=== PATIENT | female | born 1940 | race Caucasian/White ===

== ENCOUNTER 2016-10-09 08:10 | Day surgery (SDC) | payer MEDICARE, OTHER ==
--- NOTE | 2016-10-09 06:03 | PCM.HP ---
H&P History of Present Illness - General Date of Service: 10/09/16 Admit Problem/Dx: duodenitis, esophageal ulcerations around the GE junction, gastritis, small gastric ulcers on 06/12/16 diagnostic EGD, need for surveillance EGD Source of Information: Patient - History of Present Illness Initial Comments - Free Text/Narative: The patient presents today for surveillance EGD. She reports she was taking Prilosec twice daily up until a few weeks ago. She reports she does forget to take this at times lately. She reports she has had significant improvement in stomach issues. She reports her stomach feels more settled and she is less gassy and less frequent burping. She reports she has rare reflux/heartburn now when she overeats. She denies she has trouble swallowing, nausea, vomiting, constipation, diarrhea, melena, blood in her stool or abdominal pain. She did have her right great toe and second toe nails removed on 09/13. She reports her toes were purple, draining and warm, but this has improved. she reports they did have an odor, but no longer have an odor. She has taken tylenol for pain at times. she has been applying Silvadene to the toes. She has some ankle swelling in the mcdonald with heat. - Related Data Allergies/Adverse Reactions: Allergies Allergy/AdvReac Type Severity Reaction Status Date / Time iohexol Allergy Itching Verified 06/11/16 16:05 shellfish derived Allergy Itching Verified 05/06/16 12:15 Home Medications: Home Meds Anastrozole 1 tab PO DAILY 03/05/16 [History] Cholecalciferol (Vitamin D3) [Vitamin D] 1 tab PO DAILY 03/05/16 [History] Fish Oil/[place]-3 Fatty Acids [Fish Oil 1,000 MG] 1 cap PO DAILY 03/05/16 [ History] Flaxseed 1 tab PO DAILY 03/05/16 [History] Glucosam/Chond/Hyalu/Cf Borate [Move Free Joint Health Tablet] 1 tab PO DAILY [History] Multivitamin [Multivitamins] 1 tab PO DAILY 03/05/16 [History] Vitamin B Complex [B Complex] 1 tab PO DAILY 03/05/16 [History] Vitamin E 1 cap PO DAILY 03/05/16 [History] Omeprazole 20 mg PO BID #60 tablet. 06/12/16 [Rx] Betamethasone/Clotrimazole [Lotrisone] 1 applic TOP ASDIRECTED PRN 10/08/16 [ History] Calcium Carbonate [Calcium] 600 mg PO DAILY 10/08/16 [History] Naproxen Sodium [Aleve] 220 - 440 mg PO BID PRN 10/08/16 [History] Past Medical History HEENT History: Reports: Cataract Cardiovascular History: Reports: High Cholesterol Respiratory History: Reports: None Gastrointestinal History: Reports: Colon Polyp, Gastritis, GERD, Other (See Below) Other Gastrointestinal History: duodenitis, esophageal ulcerations, gastric ulcers, diverticulosis, post op nausea and vomiting Genitourinary History: Reports: Renal Calculus KELP OR SEAGR[employer] GATHERER History: Reports: Musculoskeletal History: Reports: Arthritis, Back Pain, Chronic Neurological History: Reports: None, Vertigo Psychiatric History: Reports: None, Other (See Below) Other Psychiatric History: clautrophobia Endocrine/Metabolic History: Reports: Obesity/BMI 30+, Other (See Below) Other Endocrine/Metabolic History: goiter Hematologic History: Reports: None Immunologic History: Reports: None Oncologic (Cancer) History: Reports: Breast Dermatologic History: Reports: None - Infectious Disease History Infectious Disease History: Reports: None - Past Surgical History Head Surgeries/Procedures: Reports: None HEENT Surgical History: Reports: Cataract Surgery, Tonsillectomy Cardiovascular Surgical History: Reports: Other (See Below) Other Cardiovascular Surgeries/Procedures: cardiac catheterization GI Surgical History: Reports: Cholecystectomy, Colonoscopy, EGD Female Surgical History: Reports: Hysterectomy, Lithotripsy/ESWL, Mastectomy Musculoskeletal Surgical History: Reports: Hip Replacement, Knee Replacement, Other (See Below) Other Musculoskeletal Surgeries/Procedures:: herniated disk surgery, bilateral hip replacements, bilateral knee replacements Dermatological Surgical History: Reports: None Social & Family History - Tobacco Use Smoking Status *Q: Never Smoker Second Hand Smoke Exposure: No - Alcohol Use Days Per Week of Alcohol Use: 0 - Recreational Drug Use Recreational Drug Use: No H&P Review of Systems - Review of Systems: Review Of Systems: See Below Free Text/Narrative: Denies any exertional chest pain or shortness of breath. No history of any easy bleeding or bruising. No personal or familial history of clotting or bleeding disorders. No history of anesthetic complications, with the exception of PONV. No history of familial anesthetic complications. Presently denies chest pain, palpitations. Rare lower extremity edema. NO: dyspnea, orthopnea, claudication, wheezing, obstructive sleep apnea, chronic cough, upper respiratory symptoms in the last two weeks. No history of blood thinner use. No history of anemia. ~~~The patient bilateral hip and knee~joint replacement. ~No history of seizure or stroke. ~ No history of fever, chills, or nightsweats. She has back and joint pain. ~ Prior cardiology. NO: pulmonology evaluation. Was told she had a heart attack in the past prior to knee surgery. ~She had to see Dr. Hernandez and had a cardiac catheter that was negative. ~ EK nonspecific T wave abnormality from former [facility] records. All other systems reviewed and were negative except as per history of present illness General: Reports: No Symptoms. Denies: Fever, Chills, Night Sweats HEENT: Denies: No Symptoms Pulmonary: Denies: No Symptoms, Shortness of Breath Cardiovascular: Denies: No Symptoms, Chest Pain, Palpitations, Dyspnea on Exertion Gastrointestinal: Reports: No Symptoms. Denies: Abdominal Pain Genitourinary: Reports: No Symptoms Musculoskeletal: Reports: No Symptoms Skin: Reports: Other (see hpi ) Psychiatric: Reports: No Symptoms Neurological: Reports: No Symptoms Hematologic/Lymphatic: Reports: No Symptoms Immunologic: Reports: No Symptoms Exam - Exam Exam: See Below - Vital Signs Weight: 90.718 kg - Exam General: Alert, Oriented HEENT: Conjunctiva Clear. No: Scleral Icterus Neck: Supple, Trachea Midline Lungs: Clear to Auscultation, Normal Respiratory Effort Cardiovascular: Regular Rate, Regular Rhythm, Normal S1, Normal S2. No: Systolic Murmur, Diastolic Murmur Abdomen: Soft. No: Distention, Tenderness Back Exam: Normal Inspection, Full Range of Motion Extremities: Normal Inspection, Normal Pulses, Edema (mild ankle ). No: Clubbing, Cyanosis, Calf Tenderness Skin: Warm, Dry (right great and second toe nail removal sites healing well, slight warmth to right great toe; fibrinous exudate noted-no odor, granulation tissue noted, skin to distal right great and second toes are deep pink in color , no tenderness, skin to medial aspect of nail bed of second toe is slighty macerated) Neurological: Cranial Nerves Intact, Normal Speech Neuro Extensive - Mental Status: Alert, Oriented x3, Normal Mood/Affect, Normal Cognition, Memory Intact Psychiatric: Alert, Normal Affect, Normal Mood *Q Meaningful Use (ADM) - VTE *Q VTE Criteria *Q: - Stroke *Q Stroke Criteria *Q: - AMI *Q AMI Criteria *Q: - Problem List (1) Duodenitis SNOMED Code(s): 14521170 ICD Code: K29.80 - DUODENITIS WITHOUT BLEEDING Status: Acute Current Visit: Yes (2) Gastric ulcer SNOMED Code(s): 376490296 ICD Code: K25.9 - GASTRIC ULCER, UNSP ACUTE OR CHRONIC, W/O HEMOR OR PERF Status: Acute Current Visit: Yes Qualifiers: Gastric ulcer complication status: without hemorrhage or perforation (3) Esophageal ulceration SNOMED Code(s): 76717233 ICD Code: K22.10 - ULCER OF ESOPHAGUS WITHOUT BLEEDING Status: Acute Current Visit: Yes Qualifiers: Esophageal ulcer bleeding: without bleeding Qualified Code(s): K22.10 - Ulcer of esophagus without bleeding (4) Gastritis SNOMED Code(s): 8069737 ICD Code: K29.70 - GASTRITIS, UNSPECIFIED, WITHOUT BLEEDING Status: Acute Current Visit: Yes Qualifiers: Gastritis type: unspecified gastritis Chronicity: unspecified Gastritis bleeding: without bleeding Qualified Code(s): K29.70 - Gastritis, unspecified , without bleeding Problem List Initiated/Reviewed/Updated: Yes Orders Last 24hrs: Active Orders 24 hr Category Date Time Status Peripheral IV Care [RC] . DIRECTED Care 10/09/16 00:01 Active Verify Patient Consent Obtain [RC] ASDIRECTED Care 10/09/16 00:01 Active Lactated Ringers [Ringers, Lactated] 1,000 ml Med 10/09/16 00:01 Active IV ASDIRECTED Lidocaine 1%/Sod Bicarbonate [Buffered Lidocaine 1% in Med 10/09/16 00:01 Active NS 8.4%] 0.25 ml .XX ONETIME PRN Sodium Chloride 0.9% [Saline Flush] Med 10/09/16 00:01 Active 10 ml FLUSH ASDIRECTED PRN Medication Administration Instruction [OM.PC] Routine Oth 10/09/16 00:01 Ordered Peripheral IV Insertion Adult [OM.PC] Routine Oth 10/09/16 00:01 Ordered Medication Orders Lactated Ringer's (Ringers, Lactated) 1,000 mls @ 125 mls/hr IV ASDIRECTED CRISTOPHER Stop: 10/09/16 23:00 Lidocaine/Sodium Bicarbonate (Buffered Lidocaine 1% In Ns 8.4%) 0.25 ml .XX ONETIME PRN PRN Reason: Prior to IV Start Stop: 10/09/16 18:00 Sodium Chloride (Saline Flush) 10 ml FLUSH ASDIRECTED PRN PRN Reason: Keep Vein Open Stop: 10/09/16 18:00 Assessment/Plan Comment:: 75yr female status history of duodenitis, esophageal ulcerations around the GE junction, gastritis, small gastric ulcers, need for surveillance EGD We discussed performing a diagnostic EGD. We discussed the risks and benefits of EGD including pain, bleeding, need for additional procedures, damage to surrounding structures including esophageal or small bowel perforation risk of less than 1%, and risks of anesthesia. Informed consent was obtained. Verbal and written instructions were reviewed. Prior records/labs reviewed. She does have concerns about the appearance of her toe nails post removal. Follow up with Dr. Alas was advised. She should also place the silvadene only to nail bed to keep surrounding skin dry. This patient was evaluated with Dr. Annie Knott. Plan formulated above. Nadya Diaz NP-C scribing for Dr. Annie Knott General Surgery
[~2016-10-09 08:10] MED LIST: Lactated Ringers 1,000 ML IV SCH; Lidocaine 1%/Sod Bicarbonate in NS 8.4% 1 ML Syringe PRN; Propofol 200 MG/20 ML SDV ONE; Sodium Chloride 0.9% 10 ML Syringe FLUSH PRN
--- NOTE | 2016-10-09 09:17 | PCM.PREANE ---
Preanesthetic Assessment - Anesthesia/Transfusion/Family Hx Anesthesia History: Prior Anesthesia Reaction Type of Anesthesia Reaction: Excessive Nausea/Vomiting Family History of Anesthesia Reaction: No Transfusion History: Prior Transfusion Without Reaction Intubation History: Unknown - Review of Systems General: No Symptoms Pulmonary: No Symptoms Cardiovascular: No Symptoms (history of heart catheterization with unremarkable results noted prior to past knee replacement. (patient does not recall year)) Gastrointestinal: No symptoms (GERD) Neurological: No Symptoms Other: Reports: None (history of breast CA left (lumpectomy)) - Physical Assessment NPO Status Date: 10/08/16 NPO Status Time: 22:00 Pulse: 64 O2 Sat by Pulse Oximetry: 96 Respiratory Rate: 16 Blood Pressure: 139/73 Temperature: 37.3 C Vital Signs: Last Vital Signs Temp 37.3 C 10/09/16 08:20 Pulse 64 10/09/16 08:20 Resp 16 10/09/16 08:20 BP 139/73 10/09/16 08:20 Pulse Ox 96 10/09/16 08:20 Height: 1.7 m Weight: 94.347 kg ASA Class: 2 Mental Status: Alert & Oriented x3 Airway Class: Mallampati = 2 Dentition: Reports: Normal Dentition, Caries Thyro-Mental Finger Breadths: 3 Mouth Opening Finger Breadths: 3 ROM/Head Extension: Full Lungs: Clear to auscultation, Normal respiratory effort Cardiovascular: Regular Rate, Regular Rhythm, No Murmurs - Imaging/EKG Impressions: EKG: sinus rhythm rate=68 - Allergies Allergies/Adverse Reactions: Allergies Allergy/AdvReac Type Severity Reaction Status Date / Time iohexol Allergy Itching Verified 06/11/16 16:05 shellfish derived Allergy Itching Verified 05/06/16 12:15 - Anesthesia Plan Pre-Op Medication Ordered: None - Acknowledgements Anesthesia Type Planned: MAC Pt an Appropriate Candidate for the Planned Anesthesia: Yes Alternatives and Risks of Anesthesia Discussed w Pt/Guardian: Yes Pt/Guardian Understands and Agrees with Anesthesia Plan: Yes PreAnesthesia Questionnaire HEENT History: Reports: Cataract Cardiovascular History: Reports: High Cholesterol Respiratory History: Reports: None Gastrointestinal History: Reports: Colon Polyp, Gastritis, GERD, Other (See Below) Other Gastrointestinal History: duodenitis, esophageal ulcerations, gastric ulcers, diverticulosis, post op nausea and vomiting Genitourinary History: Reports: Renal Calculus [employer] History: Reports: Musculoskeletal History: Reports: Arthritis, Back Pain, Chronic Neurological History: Reports: None, Vertigo Psychiatric History: Reports: None, Other (See Below) Other Psychiatric History: clautrophobia Endocrine/Metabolic History: Reports: Obesity/BMI 30+, Other (See Below) Other Endocrine/Metabolic History: goiter Hematologic History: Reports: None Immunologic History: Reports: None Oncologic (Cancer) History: Reports: Breast Dermatologic History: Reports: None - Infectious Disease History Infectious Disease History: Reports: None - Past Surgical History Head Surgeries/Procedures: Reports: None HEENT Surgical History: Reports: Cataract Surgery, Tonsillectomy Cardiovascular Surgical History: Reports: Other (See Below) Other Cardiovascular Surgeries/Procedures: cardiac catheterization GI Surgical History: Reports: Cholecystectomy, Colonoscopy, EGD Female Surgical History: Reports: Hysterectomy, Lithotripsy/ESWL, Mastectomy Musculoskeletal Surgical History: Reports: Hip Replacement, Knee Replacement, Other (See Below) Other Musculoskeletal Surgeries/Procedures:: herniated disk surgery, bilateral hip replacements, bilateral knee replacements Dermatological Surgical History: Reports: None - SUBSTANCE USE Smoking Status *Q: Never Smoker Tobacco Use Within Last Twelve Months: No Second Hand Smoke Exposure: No Days Per Week of Alcohol Use: 0 Recreational Drug Use History: No - HOME MEDS Home Medications: Home Meds Anastrozole 1 tab PO DAILY 03/05/16 [History] Cholecalciferol (Vitamin D3) [Vitamin D] 1 tab PO DAILY 03/05/16 [History] Fish Oil/[place]-3 Fatty Acids [Fish Oil 1,000 MG] 1 cap PO DAILY 03/05/16 [ History] Flaxseed 1 tab PO DAILY 03/05/16 [History] Glucosam/Chond/Hyalu/Cf Borate [Move Free Joint Health Tablet] 1 tab PO DAILY [History] Multivitamin [Multivitamins] 1 tab PO DAILY 03/05/16 [History] Vitamin B Complex [B Complex] 1 tab PO DAILY 03/05/16 [History] Vitamin E 1 cap PO DAILY 03/05/16 [History] Omeprazole 20 mg PO BID #60 tablet. 06/12/16 [Rx] Betamethasone/Clotrimazole [Lotrisone] 1 applic TOP ASDIRECTED PRN 10/08/16 [ History] Calcium Carbonate [Calcium] 600 mg PO DAILY 10/08/16 [History] Naproxen Sodium [Aleve] 220 - 440 mg PO BID PRN 10/08/16 [History] - CURRENT (IN HOUSE) MEDS Current Meds: Current Medications Lactated Ringer's (Ringers, Lactated) 1,000 mls @ 125 mls/hr IV ASDIRECTED CRITSOPHER Stop: 10/09/16 23:00 Last Admin: 10/09/16 08:45 Dose: 125 mls/hr Lidocaine/Sodium Bicarbonate (Buffered Lidocaine 1% In Ns 8.4%) 0.25 ml .XX ONETIME PRN PRN Reason: Prior to IV Start Stop: 10/09/16 18:00 Last Admin: 10/09/16 08:45 Dose: 0.25 ml Sodium Chloride (Saline Flush) 10 ml FLUSH ASDIRECTED PRN PRN Reason: Keep Vein Open Stop: 10/09/16 18:00 Discontinued Medications Propofol (Diprivan 20 Ml) Confirm Administered Dose 200 mg .ROUTE .STK-MED ONE Stop: 10/09/16 07:09
--- NOTE | 2016-10-09 10:38 | PCM48HPAN ---
Post Anesthesia Note - EVALUATION WITHIN 48HRS OF ANESTHETIC Vital Signs in Normal Range: Yes Patient Participated in Evaluation: Yes Respiratory Function Stable: Yes Airway Patent: Yes Cardiovascular Function Stable: Yes Hydration Status Stable: Yes Pain Control Satisfactory: Yes Nausea and Vomiting Control Satisfactory: Yes Mental Status Recovered: Yes
--- NOTE | 2016-10-09 10:44 | PCM.OPNOTE ---
- General Post-Op/Procedure Note Date of Surgery/Procedure: 10/09/16 Operative Procedure(s): Surveillance EGD with cold forceps biopsy Pre Op Diagnosis: Recent history of gastric ulcers, history of esophageal erosions and gastritis Post-Op Diagnosis: Hiatal hernia, duodenitis, gastric polyp, gastritis, esophagitis Anesthesia Technique: [facility] [place] Primary Surgeon: Annie Knott Anesthesia Provider: Michaelle Duffy Pathology: 1. Small bowel biopsy 2. Antral biopsy 3. Distal esophageal biopsy EBL in mLs: 2 Complications: None Condition: Good Free Text/Narrative:: FLUIDS: 300 mL crystalloid. INDICATION FOR PROCEDURE: The patient is a 75-year-old woman who was initially referred to me by Dr. Russel Javed, she presents today for re-evaluation of gastric ulcers and esophageal erosions. She has reportedly been taking her PPI intermittently. EGD had been discussed with the patient and risks of the associated procedure. The patient found these risks acceptable and agreed to proceed. DESCRIPTION OF PROCEDURE: The patient was taken to the operating room and placed in the left lateral decubitus position. After induction of adequate sedation, a bite block was placed. A standard Olympus gastroscope was inserted into the oropharynx and guided down the esophagus without difficulty. The gastroesophageal junction was appreciated at 39 cm from the teeth. There was no evidence of stricture or esophageal ulcerations. The scope was advanced into the stomach, and there was mild gastritis, but no ulcerations. The scope was passed into the proximal jejunum and the duodenum which showed duodenitis of D1 and D2. There were petechiae, but no ulcerations. The proximal jejunum was grossly normal in appearance. Multiple cold forceps biopsies were obtained of the proximal jejunum and duodenum. The scope was withdrawn into the antrum, and additional cold forceps biopsies were obtained. The remainder of the gastric body was examined, and there were a few diminutive gastric polyps in the body of the stomach. The scope was retroflexed, and there was a small sliding hiatal hernia. The scope was straightened and withdrawn to the GE junction. There was mild esophagitis with an irregular Z-line, but no significant erosions. Additional cold forceps biopsies were obtained of the distal esophagus. The scope was withdrawn through the remainder of the esophagus and no further abnormalities were noted. The posterior oropharynx was grossly normal in appearance. The scope was then fully withdrawn. The patient was awakened from sedation and transferred to the recovery room in stable condition having tolerated the procedure well. POSTOPERATIVE PLAN: I discussed with the patient my intraoperative findings and postoperative recommendations. The appearance of her stomach and esophagus have improved, but the inflammation present has not completely resolved.The patient will follow up in approximately 2 weeks to discuss their pathology and how their symptoms are progressing. The patient is to take her Omeprazole, a total of 40mg daily, as prescribed. I have asked the patient to follow a GERD\ gastritis diet. The patient is to call with any worsening of symptoms or questions prior to appointment.
[2016-10-09 11:33] VITALS: BP 116/78
== END 2016-10-09 11:20 | disposition home or self-care (01) ==
LOC: JD.SDS 08:10
PROVIDERS: ATTEND Surgery
DX: K21.0 Gastro-esophageal reflux disease with esophagitis (principal); K29.80 Duodenitis without bleeding; K29.70 Gastritis, unspecified, without bleeding; K31.7 Polyp of stomach and duodenum; K22.10 Ulcer of esophagus without bleeding; Z87.11 Personal history of peptic ulcer disease; Z87.19 Personal history of other diseases of the digestive system; E78.00 Pure hypercholesterolemia, unspecified; Z86.010 Personal history of colon polyps; Z79.899 Other long term (current) drug therapy
CPT/HCPCS: 43239; J7120; 88305; 88312; J2704